=== PATIENT | male | born 1985 | race African-American/Black ===

== ENCOUNTER 2016-08-23 23:35 | Emergency (ER) | payer OTHER ==
[~2016-08-23] VITALS: Ht 180.3 cm; Wt 71.9 kg
--- NOTE | ~2016-08-23 | EKG ---
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
[~2016-08-23 23:35] MED LIST: NAPROSYN500 MG PO; NOHOMEMEDICATIONS
[2016-08-24 00:19] LABS: ABSOLUTE NEUTROPHILS 3.6 thou/uL (1.4-8.2); BASOPHILS 0.5 % (0.0-2.0); EOSINOPHILS 3.1 % (0.0-3.0); HEMATOCRIT 40.2 % (42.0-52.0); HEMOGLOBIN 12.9 gm/dL (14.0-18.0); MCH 25.3 pg (26.0-34.0); MCHC 32.2 g/dL (28.0-37.0); MCV 78.5 fL (80.0-100.0); MONOCYTES 11.9 % (1.0-8.0); PLATELET COUNT 232 thou/uL (150-400); POLYS 39.5 % (36.0-66.0); RBC 5.12 mil/uL (4.50-6.00); RDW 15.2 % (10.5-14.5); WBC 9.1 thou/uL (4.0-11.0)
[2016-08-24 00:21] LABS: ANION GAP 10 mmol/L (7-16); BUN 10 mg/dL (7-18); CALCIUM 9.4 mg/dL (8.5-10.1); CHLORIDE 103 mmol/L (98-107); CO2 28 mmol/L (21-32); CREATININE 1.2 mg/dL (0.7-1.3); GLUCOSE 104 mg/dL (74-106); POTASSIUM 3.6 mmol/L (3.5-5.1); SODIUM 141 mmol/L (136-145)
[2016-08-24 00:25] LABS: MANUAL DIFF NO
[2016-08-24 00:32] LABS: NT-PRO BRAIN NAT PEPTIDE 22 pg/mL (<300); TROPONIN-I < 0.04 ng/mL (<0.04-0.07)
[2016-08-24 01:45] VITALS: BP 121/68
== END 2016-08-24 01:45 | disposition home or self-care (01) ==
LOC: ER 23:35
PROVIDERS: Emergency Medicine
DX: R06.00 Dyspnea, unspecified (principal); G47.9 Sleep disorder, unspecified; I10 Essential (primary) hypertension; F17.210 Nicotine dependence, cigarettes, uncomplicated